=== PATIENT | female | born 1940 | race Caucasian/White ===

== ENCOUNTER → 2017-05-15 | Outpatient (CLI) | payer MEDICARE | END | disposition home or self-care (01) | LOC: RAH 10:50 | PROVIDERS: ATTEND Family Medicine | DX: N18.9 Chronic kidney disease, unspecified (principal); N08 Glomerular disorders in diseases classified elsewhere | CPT/HCPCS: 76770 ==

== ENCOUNTER → 2017-06-15 | Outpatient (CLI) | payer MEDICARE | END | disposition home or self-care (01) | LOC: RAH 10:50 | PROVIDERS: ATTEND Family Medicine | DX: Z12.31 Encounter for screening mammogram for malignant neoplasm of breast (principal) | CPT/HCPCS: 77067 ==

== ENCOUNTER → 2018-07-18 | Outpatient (CLI) | payer MEDICARE | END | disposition home or self-care (01) | LOC: RAH 15:38 | PROVIDERS: ATTEND Family Medicine | DX: J47.0 Bronchiectasis with acute lower respiratory infection (principal); J20.9 Acute bronchitis, unspecified; M47.815 Spondylosis without myelopathy or radiculopathy, thoracolumbar region | CPT/HCPCS: 71046 ==

== ENCOUNTER → 2018-08-02 | Outpatient (CLI) | payer MEDICARE | END | disposition home or self-care (01) | LOC: RAH 14:56 | PROVIDERS: ATTEND Family Medicine | DX: Z12.31 Encounter for screening mammogram for malignant neoplasm of breast (principal) | CPT/HCPCS: 77067 ==

== ENCOUNTER 2019-12-22 23:05 | Inpatient (IN) | payer MEDICARE ==
[~2019-12-22] VITALS: Ht 160 cm; Wt 104.3 kg
[2019-12-22] MEDS ORDERED: ASPIRIN 325 MG TABLET ONE (23:10)
[2019-12-22 23:33] LABS: BASOPHILS % (AUTO) 0.4 % (0.0-5.0); EOSINOPHILS % (AUTO) 1.5 % (0.0-8.0); HEMATOCRIT 44.1 % (36-48); LYMPHOCYTES % (AUTO) 22.3 % (21.0-51.0); MEAN CORPUSCULAR HEMOGLOBIN 30.5 pg (27.0-33.0); MEAN CORPUSCULAR HGB CONC 32.4 g/dL (32.0-36.0); MONOCYTES % (AUTO) 6.6 % (3.0-13.0); NEUTROPHILS % (AUTO) 68.9 % (40.0-77.0); PLATELET COUNT (AUTO) 257 K/uL (130-400); RED BLOOD CELL COUNT(AUTO) 4.69 MIL/uL (4.00-5.50); RED CELL DISTRIBUTION WIDTH 14.2 % (11.0-15.5); WHITE BLOOD COUNT (AUTO) 10.6 K/uL (4.8-10.8)
[2019-12-22 23:44] LABS: CREATININE 1.2 mg/dL (0.5-1.5); POTASSIUM 3.5 mmol/L (3.5-5.1)
[2019-12-22 23:48] LABS: ALBUMIN 3.8 g/dL (3.5-5.0); BILIRUBIN,TOTAL 0.3 mg/dL (0.2-1.0); TOTAL PROTEIN, SERUM 7.6 g/dL (6.0-8.3)
[2019-12-22 23:58] LABS: B-TYPE NATRIURETIC PEPTIDE 183 pg/mL (0-100)
[2019-12-23] LABS: INR 2.5 (0.85-1.15); PROTHROMBIN TIME 26.1 SEC (9.6-11.6)
[2019-12-23 00:41] LABS: PARTIAL THROMBOPLASTIN TIME 35.1 SEC (26.3-35.5)
[2019-12-23] MEDS ORDERED: FAMOTIDINE/PF 20 MG/2 ML VIAL IV ONE (02:41)
[2019-12-23] MEDS ORDERED: HYDRALAZINE HCL 20 MG/ML VIAL ONE (02:41)
[2019-12-23 04:00] VITALS: BP 153/66
[2019-12-23] MEDS ORDERED: SOTA120T PO (04:33)
[2019-12-23] MEDS ORDERED: GEMF600T5 PO (04:34)
[2019-12-23] MEDS ORDERED: EZET10TA48 PO (04:34)
[2019-12-23] MEDS ORDERED: CHLO25TA3 PO (04:37)
[2019-12-23] MEDS ORDERED: ASCO100031 PO (04:45)
[2019-12-23] MEDS ORDERED: OMEG-184 PO (04:45)
[2019-12-23] MEDS ORDERED: VITA1TAB22 PO (04:45)
[2019-12-23] MEDS ORDERED: L.AC1CAP6 PO (04:45)
[2019-12-23] MEDS ORDERED: FOLI0.8T22 PO (04:45)
[2019-12-23] MEDS ORDERED: MULT-1367 PO (04:45)
[2019-12-23] MEDS ORDERED: VALS160T29 PO (04:45)
[2019-12-23] MEDS ORDERED: MV-M1TAB20 PO ×2 (04:45→04:48)
[2019-12-23] MEDS ORDERED: WARF-57 PO (04:45)
[2019-12-23] MEDS ORDERED: CHOL400C9 PO (04:45)
[2019-12-23] MEDS ORDERED: LIDOCAINE HCL 2% VISCOUS 30 ML, MAG HYDROX/AL HYDROX/SIMETH 30 ML, BELLADONNA-PHENOBARB... PO PRN ×3 (05:15)
[2019-12-23] MEDS ORDERED: NITROGLYCERIN 0.4 MG SL TAB SL PRN (05:15)
[2019-12-23] MEDS ORDERED: GUAIFENESIN-DM 200/20 MG 10 ML PO PRN (05:15)
[2019-12-23] MEDS ORDERED: LACTULOSE 20 GM/30 ML UDCUP PO PRN (05:15)
[2019-12-23] MEDS ORDERED: ACETAMINOPHEN 325 MG TAB PO PRN ×2 (05:15)
[2019-12-23] MEDS ORDERED: MORPHINE SULFATE 2 MG/ML 1ML SYG IV PRN (05:15)
[2019-12-23] MEDS ORDERED: ONDANSETRON HCL 4 MG/2 ML VIAL IV PRN (05:15)
[2019-12-23 06:18] LABS: BASOPHILS % (AUTO) 0.5 % (0.0-5.0); EOSINOPHILS % (AUTO) 1.6 % (0.0-8.0); HEMATOCRIT 46.8 % (36-48); LYMPHOCYTES % (AUTO) 21.5 % (21.0-51.0); MEAN CORPUSCULAR HEMOGLOBIN 30.6 pg (27.0-33.0); MEAN CORPUSCULAR HGB CONC 32.5 g/dL (32.0-36.0); MEAN CORPUSCULAR VOLUME 94.2 fL (79-99); NEUTROPHILS % (AUTO) 70.2 % (40.0-77.0); PLATELET COUNT (AUTO) 257 K/uL (130-400); RED BLOOD CELL COUNT(AUTO) 4.97 MIL/uL (4.00-5.50); RED CELL DISTRIBUTION WIDTH 14.3 % (11.0-15.5); WHITE BLOOD COUNT (AUTO) 9.2 K/uL (4.8-10.8)
[2019-12-23 06:33] LABS: HEMOGLOBIN A1C 6.3 % (4.0-6.0)
[2019-12-23 06:38] LABS: ALBUMIN 3.8 g/dL (3.5-5.0); BILIRUBIN,TOTAL 0.5 mg/dL (0.2-1.0); POTASSIUM 3.6 mmol/L (3.5-5.1); TOTAL PROTEIN, SERUM 7.6 g/dL (6.0-8.3)
[2019-12-23 07:23] LABS: CHOLESTEROL 165 mg/dL (<200); HDL CHOLESTEROL 45 mg/dL (35-85); LDL DIRECT 99 mg/dL (0-99); TRIGLYCERIDES 100 mg/dL (30-200)
[2019-12-23] MEDS: **HM** CHLORTHALIDONE 25MG PO SCH (09:00)
[2019-12-23] MEDS ORDERED: ASPIRIN 325 MG TABLET PO SCH (09:00)
[2019-12-23] MEDS ORDERED: WARFARIN SODIUM 5 MG TAB PO SCH (09:00)
[2019-12-23] MEDS ORDERED: ENOXAPARIN SODIUM 30 MG/0.3 ML SQ SCH (09:00)
[2019-12-23] MEDS ORDERED: EZETIMIBE 10 MG TAB PO SCH (09:00)
[2019-12-23] MEDS ORDERED: SOTALOL HCL 80 MG TABLET PO SCH (09:00)
[2019-12-23] MEDS: GEMFIBROZIL 600 MG TABLET PO SCH ×2 (10:30→17:39)
[2019-12-23] MEDS: LOSARTAN 100 MG TABLET PO SCH (10:31)
[2019-12-23] MEDS: FAMOTIDINE/PF 20 MG/2 ML VIAL IV SCH ×2 (10:32→21:16)
[2019-12-23 13:11] VITALS: BP 189/64
[2019-12-23] MEDS: HYDRALAZINE HCL 25 MG TABLET PO SCH ×2 (14:37→21:17)
--- NOTE | 2019-12-23 15:00 | NUR ---
MET WITH PATIENT AT BEDSIDE FOR D/C PLANNING. LIVES WITH DAUGHTER DEANNA, IS INDEPENDENT, DRIVES, HAS A SHOWER CHAIR BUT NO OTHER DME, SEES HER PCP DR. 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
[2019-12-23] MEDS ORDERED: COMPOUND PO MISCELLANEOUS 1 EACH MISC MISC PRN (18:45)
[2019-12-23] MEDS ORDERED: LIDOCAINE HCL 2% VISCOUS 60 ML, MAG HYDROX/AL HYDROX/SIMETH 60 ML, DICYCLOMINE HCL 40 MG PO PRN ×3 (18:45)
--- NOTE | 2019-12-23 19:00 | NUR ---
PT UPDATE: PT REMAINED CALM AND COOPERATIVE THROUGHOUT SHIFT. NO SIGNS OF DISTRESS NOTED OR REPORTED. PT DENIED ANY CHEST PAIN. PT WAS SEEN BY VICTORINA WRIGHT. BLOOD PRESSURE WAS HIGH IN AM AND HEART RATE DROPPED IN BETWEEN THE HIGH 30-40's AND WAS REPORTED TO VICTORINA WRIGHT WITH HEART CLINIC, ORDERS GIVEN TO HOLD SOTALOL/BETAPACE AND START ON HYDRALAZINE 25 MG PO BID. SEE EMAR FOR FURTHER DETAIL. PT WILL CONTINUE TO BE MONITORED.
[2019-12-23 19:46] VITALS: BP 164/71
[2019-12-23 20:00] VITALS: BP 188/86
[2019-12-23] MEDS: EZETIMIBE 10 MG TAB PO SCH (21:16)
[2019-12-23] MEDS: WARFARIN SODIUM 5 MG TAB PO SCH (21:17)
[2019-12-24] VITALS (7 sets, daily range): BP systolic 148–187; BP diastolic 57–84
[2019-12-24] MEDS: HYDRALAZINE HCL 20 MG/ML VIAL IV PRN ×3 (00:10→10:01)
[2019-12-24 06:34] LABS: INR 3.1 (0.85-1.15); PROTHROMBIN TIME 32.1 SEC (9.6-11.6)
[2019-12-24] MEDS: LOSARTAN 100 MG TABLET PO SCH (08:31)
[2019-12-24] MEDS: HYDRALAZINE HCL 25 MG TABLET PO SCH ×2 (08:32→20:27)
[2019-12-24] MEDS: ASPIRIN 81MG TAB.CHEW PO SCH (08:32)
[2019-12-24] MEDS: FAMOTIDINE/PF 20 MG/2 ML VIAL IV SCH ×2 (08:32→20:26)
[2019-12-24] MEDS: GEMFIBROZIL 600 MG TABLET PO SCH ×2 (08:33→19:00)
[2019-12-24] MEDS: **HM** CHLORTHALIDONE 25MG PO SCH (09:00)
--- NOTE | 2019-12-24 10:08 | NUR ---
ASSESSMENT PT AAOX4 PT IN BED WORRIED ABOUT LEXISCAN, AND MEDS. PT BP 176/95, GAVE 0.5 OF HYDRALAZINE IVP SLOW
[2019-12-24] MEDS ORDERED: FOLI1TAB85 PO (10:33)
[2019-12-24] MEDS ORDERED: SOTALOL HCL 80 MG TABLET PO SCH ×2 (10:54→21:00)
[2019-12-24] MEDS ORDERED: Vitamin B Complex/Vit C/Folic Acid PO SCH (11:00)
--- NOTE | 2019-12-24 11:10 | NUR ---
ROUNDING WENT FOR 2ND PART OF LEXISCAN
[2019-12-24] MEDS: REGADENOSON 0.4 MG/5 ML PF SYG IVP SCH ×2 (11:30→13:19)
--- NOTE | 2019-12-24 13:30 | NUR ---
ROUNDING BACK FROM [facility]
[2019-12-24] MEDS: WARFARIN SODIUM 5 MG TAB PO SCH (18:59)
[2019-12-24] MEDS: EZETIMIBE 10 MG TAB PO SCH (20:26)
[2019-12-25 04:00] VITALS: BP 166/71
[2019-12-25] MEDS: HYDRALAZINE HCL 20 MG/ML VIAL IV PRN ×2 (04:15→14:04)
[2019-12-25 04:47] LABS: BASOPHILS % (AUTO) 0.4 % (0.0-5.0); EOSINOPHILS % (AUTO) 1.5 % (0.0-8.0); HEMATOCRIT 46.5 % (36-48); LYMPHOCYTES % (AUTO) 28.1 % (21.0-51.0); MEAN CORPUSCULAR HEMOGLOBIN 30.2 pg (27.0-33.0); MEAN CORPUSCULAR HGB CONC 32.7 g/dL (32.0-36.0); MEAN CORPUSCULAR VOLUME 92.3 fL (79-99); MONOCYTES % (AUTO) 7.6 % (3.0-13.0); PLATELET COUNT (AUTO) 271 K/uL (130-400); RED BLOOD CELL COUNT(AUTO) 5.04 MIL/uL (4.00-5.50); RED CELL DISTRIBUTION WIDTH 14.6 % (11.0-15.5); WHITE BLOOD COUNT (AUTO) 8.6 K/uL (4.8-10.8)
[2019-12-25 05:11] LABS: INR 2.9 (0.85-1.15); PROTHROMBIN TIME 30.1 SEC (9.6-11.6)
[2019-12-25 05:41] LABS: CREATININE 1.3 mg/dL (0.5-1.5); POTASSIUM 3.6 mmol/L (3.5-5.1)
[2019-12-25] MEDS ORDERED: PHYTONADIONE 10 MG/1 ML AMP IM SCH (07:15)
[2019-12-25 08:31] VITALS: BP 158/71
[2019-12-25] MEDS: **HM** CHLORTHALIDONE 25MG PO SCH (09:00)
[2019-12-25] MEDS: FAMOTIDINE/PF 20 MG/2 ML VIAL IV SCH ×2 (10:17→20:16)
[2019-12-25] MEDS: GEMFIBROZIL 600 MG TABLET PO SCH ×2 (10:17→16:47)
[2019-12-25] MEDS: METOPROLOL TARTRATE 25 MG TAB PO SCH ×2 (10:17→20:17)
[2019-12-25] MEDS: HYDRALAZINE HCL 25 MG TABLET PO SCH ×2 (10:18→20:17)
[2019-12-25] MEDS: ASPIRIN 81MG TAB.CHEW PO SCH (10:19)
[2019-12-25] MEDS: LOSARTAN 100 MG TABLET PO SCH (10:19)
[2019-12-25 11:54] VITALS: BP 175/86
--- NOTE | 2019-12-25 14:15 | NUR ---
1400 patient signed IM Letter, I faxed IM Letter to [phone] and placed in chart under consent tab.
[2019-12-25] MEDS ORDERED: DiphenhydrAMINE HCL 50 MG/ML VIAL ONE (16:32)
[2019-12-25 16:41] VITALS: BP 152/58
[2019-12-25] MEDS ORDERED: DiphenhydrAMINE HCL 50 MG/ML VIAL IV SCH (17:35)
[2019-12-25 20:00] VITALS: BP 148/64
[2019-12-25] MEDS: EZETIMIBE 10 MG TAB PO SCH (20:16)
--- NOTE | 2019-12-25 20:20 | NUR ---
#2 FFP TRANSFUSION: SECOND BAG OF FFP TRANSFUSION GIVEN ORDERED AND PER HOSPITAL POLICY. COMPLETED WITHOUT ANY ADVERSE REACTION. TOLERATED WELL.
[2019-12-26] VITALS: BP 163/69
[2019-12-26 04:00] VITALS: BP 184/69
[2019-12-26] MEDS: HYDRALAZINE HCL 25 MG TABLET PO SCH ×2 (04:26→22:22)
[2019-12-26 04:45] LABS: BASOPHILS % (AUTO) 0.5 % (0.0-5.0); EOSINOPHILS % (AUTO) 2.4 % (0.0-8.0); HEMATOCRIT 43.9 % (36-48); LYMPHOCYTES % (AUTO) 23.5 % (21.0-51.0); MEAN CORPUSCULAR HEMOGLOBIN 30.5 pg (27.0-33.0); MEAN CORPUSCULAR HGB CONC 32.8 g/dL (32.0-36.0); NEUTROPHILS % (AUTO) 63.4 % (40.0-77.0); PLATELET COUNT (AUTO) 250 K/uL (130-400); RED BLOOD CELL COUNT(AUTO) 4.72 MIL/uL (4.00-5.50); RED CELL DISTRIBUTION WIDTH 14.6 % (11.0-15.5); WHITE BLOOD COUNT (AUTO) 8.4 K/uL (4.8-10.8)
[2019-12-26 04:57] LABS: CREATININE 1.1 mg/dL (0.5-1.5); POTASSIUM 3.3 mmol/L (3.5-5.1)
[2019-12-26 05:05] LABS: INR 1.57 (0.85-1.15); PROTHROMBIN TIME 16.7 SEC (9.6-11.6)
--- NOTE | 2019-12-26 05:10 | NUR ---
potassium 3.3 On-call hospitalist made aware thru phone with an order to give Potassium 20 meq IV piggyback x 1 only.
[2019-12-26] MEDS ORDERED: LIDOCAINE HCL-MPF 1% 2ML VIAL IV SCH (05:30)
[2019-12-26] MEDS: POTASSIUM CHLORIDE 20 MEQ/100 ML BAG IV SCH (06:17)
[2019-12-26] MEDS: METOPROLOL TARTRATE 25 MG TAB PO SCH (06:42)
[2019-12-26 08:00] VITALS: BP 189/80
--- NOTE | 2019-12-26 08:00 | NUR ---
pharmacy called pharmacy requesting hydralzine iv due to high bp...informed they would like for some in other floors and bring me some for patient...
[2019-12-26] MEDS: GEMFIBROZIL 600 MG TABLET PO SCH ×2 (09:00→18:36)
[2019-12-26] MEDS ORDERED: TERBINAFINE HCL 15 GM TUBE TP SCH (09:00)
[2019-12-26] MEDS: FAMOTIDINE/PF 20 MG/2 ML VIAL IV SCH ×2 (09:02→22:22)
[2019-12-26] MEDS: HYDRALAZINE HCL 20 MG/ML VIAL IV PRN (09:02)
[2019-12-26 12:00] VITALS: BP 156/61
[2019-12-26] MEDS ORDERED: NITROGLYCERIN 2 MG/VIAL VIAL IV ONE (13:04)
[2019-12-26] MEDS ORDERED: SODIUM BICARB 50MEQ 50ML VIAL 50 ML ONE (13:04)
[2019-12-26] MEDS ORDERED: IOHEXOL-350 75 ML VIAL IV ONE (13:04)
[2019-12-26] MEDS ORDERED: MIDAZOLAM HCL 1 MG/ML 2ML VIAL ONE ×2 (13:04→14:07)
[2019-12-26] MEDS ORDERED: HEPARIN SODIUM 1000UNIT/ML 10ML VIAL ONE (13:05)
[2019-12-26] MEDS ORDERED: LIDOCAINE HCL 2% 20ML ONE (13:05)
[2019-12-26] MEDS ORDERED: MEPERIDINE-PF 25 MG/ML SYG ONE ×2 (13:09→14:06)
[2019-12-26] MEDS ORDERED: NICARDIPINE HCL 25 MG/10 ML ML IV ONE (14:02)
[2019-12-26] MEDS ORDERED: LABETALOL HCL 5 MG/ML 20ML VIAL IV ONE (14:31)
[2019-12-26] MEDS ORDERED: LABE200T5 PO (15:18)
--- NOTE | 2019-12-26 15:28 | NUR ---
transfer to [facility] patient was transferred to [facility] room 408 after heart cath..gave report to farzana aguilera who was taking over nursing care...answered all questions and concerns and provided kardex
[2019-12-26] MEDS ORDERED: LABETALOL HCL 200 MG TABLET PO SCH (16:15)
[2019-12-26 20:00] VITALS: BP 152/52
[2019-12-26] MEDS: EZETIMIBE 10 MG TAB PO SCH (22:21)
[2019-12-26] MEDS: SODIUM CHLORIDE 0.9% 1000ML 1,000 ML IV SCH (22:22)
[2019-12-26] MEDS: LOSARTAN 100 MG TABLET PO SCH (22:39)
[2019-12-27] VITALS: BP 141/51
[2019-12-27] MEDS: SODIUM CHLORIDE 0.9% 1000ML 1,000 ML IV SCH (01:00)
[2019-12-27 04:00] VITALS: BP 126/58
[2019-12-27] MEDS: POTASSIUM CHLORIDE 20 MEQ/100 ML BAG IV SCH (05:15)
[2019-12-27] MEDS ORDERED: LABETALOL HCL 200 MG TABLET PO SCH (06:00)
[2019-12-27 06:06] LABS: BASOPHILS % (AUTO) 0.3 % (0.0-5.0); EOSINOPHILS % (AUTO) 2.2 % (0.0-8.0); LYMPHOCYTES % (AUTO) 23.1 % (21.0-51.0); MEAN CORPUSCULAR HEMOGLOBIN 30.5 pg (27.0-33.0); MEAN CORPUSCULAR HGB CONC 32.4 g/dL (32.0-36.0); MONOCYTES % (AUTO) 10.6 % (3.0-13.0); NEUTROPHILS % (AUTO) 63.7 % (40.0-77.0); PLATELET COUNT (AUTO) 226 K/uL (130-400); RED BLOOD CELL COUNT(AUTO) 4.36 MIL/uL (4.00-5.50); RED CELL DISTRIBUTION WIDTH 14.7 % (11.0-15.5); WHITE BLOOD COUNT (AUTO) 6.9 K/uL (4.8-10.8)
[2019-12-27 06:23] LABS: POTASSIUM 3.3 mmol/L (3.5-5.1)
[2019-12-27 08:00] VITALS: BP 150/62
[2019-12-27] MEDS: FAMOTIDINE/PF 20 MG/2 ML VIAL IV SCH (08:03)
[2019-12-27] MEDS: LOSARTAN 100 MG TABLET PO SCH (08:03)
[2019-12-27] MEDS: GEMFIBROZIL 600 MG TABLET PO SCH (08:03)
[2019-12-27] MEDS: HYDRALAZINE HCL 25 MG TABLET PO SCH (08:03)
[2019-12-27 12:00] VITALS: BP 134/74
[2019-12-27] MEDS ORDERED: HYDR25 PO (13:09)
[2019-12-27] MEDS ORDERED: ASPI-1005 PO (13:09)
[2019-12-27] MEDS ORDERED: DOXY100C2 PO (13:09)
[2019-12-27] MEDS ORDERED: LOSA100T2 PO (13:09)
[2019-12-27] MEDS ORDERED: PANT40TA PO (13:23)
== END 2019-12-27 16:20 | disposition home or self-care (01) | DRG 287 ==
LOC: EDH 23:05 → OBSVTOIN 12-23 02:38 → EDHIP 12-23 02:38 → INTOOBSV 12-23 02:38 → 3DH 12-23 04:09 → 4BH 12-26 16:15
PROVIDERS: ADMIT Family Medicine; ATTEND Family Medicine
PROC: 4A023N7 Measurement of Cardiac Sampling and Pressure, Left Heart, Percutaneous Approach (ICD-10-PCS; principal; 2019-12-26)
PROC: B2111ZZ Fluoroscopy of Multiple Coronary Arteries using Low Osmolar Contrast (ICD-10-PCS; 2019-12-26)
PROC: B2151ZZ Fluoroscopy of Left Heart using Low Osmolar Contrast (ICD-10-PCS; 2019-12-26)
DX: I25.10 Atherosclerotic heart disease of native coronary artery without angina pectoris (principal); Z68.41 Body mass index [BMI] 40.0-44.9, adult; I48.21 Permanent atrial fibrillation; E78.5 Hyperlipidemia, unspecified; B35.9 Dermatophytosis, unspecified; E66.9 Obesity, unspecified; E78.00 Pure hypercholesterolemia, unspecified; I08.1 Rheumatic disorders of both mitral and tricuspid valves; I10 Essential (primary) hypertension; K21.9 Gastro-esophageal reflux disease without esophagitis; Z96.659 Presence of unspecified artificial knee joint; Z79.01 Long term (current) use of anticoagulants; Z90.710 Acquired absence of both cervix and uterus; Z90.49 Acquired absence of other specified parts of digestive tract; Z86.73 Personal history of transient ischemic attack (TIA), and cerebral infarction without residual deficits; Z88.5 Allergy status to narcotic agent; Z88.0 Allergy status to penicillin; Z91.030 Bee allergy status
CPT/HCPCS: 36415; 36430; 71045; 78452; 80048; 80053; 80061; 82550; 82948; 83036; 83735; 83880; 84484; 85025; 85610; 85730; 86850; 86900; 86901; 86927; 93005; 93017; 93306; 93356; 93458; 96374; 99156; 99157; A9500; C1760; C1769; C1894; G0378; J0360; J1200; J1644; J2175; J2250; J2785; J3430; J3480; J3490; P9017; Q9967

== ENCOUNTER → 2022-07-18 | Outpatient (CLI) | payer MEDICARE ==
[~2022-07-18] MED LIST: ASCO100031 PO; ASPI-1005 PO; DOXY100C5 PO; EZET10TA48 PO; FOLI0.8T22 PO; FOLI1TAB85 PO; GEMF600T89 PO; HYDR25 PO; L.AC1CAP6 PO; LABE200T7 PO; LOSA100T3 PO; MULT-1367 PO; MV-M1TAB20 PO; OMEG-184 PO; PANT40TA PO; VITA1TAB22 PO; WARF-57 PO
== END | disposition home or self-care (01) ==
LOC: OIH 12:10
PROVIDERS: ATTEND Internal Medicine
DX: C50.812 Malignant neoplasm of overlapping sites of left female breast (principal); M16.11 Unilateral primary osteoarthritis, right hip
CPT/HCPCS: 73502

== ENCOUNTER 2023-03-31 15:45 | Observation (INO) | payer MEDICARE ==
[~2023-03-31] VITALS: Ht 161.3 cm; Wt 94.8 kg
[~2023-03-31 15:45] MED LIST changes: +LOSA-420 PO; -LOSA100T3 PO
[2023-03-31 16:10] LABS: HEMATOCRIT 44.3 % (36-48); MEAN CORPUSCULAR HGB CONC 32.5 g/dL (32.0-36.0); MEAN CORPUSCULAR VOLUME 92.3 fL (79-99); RED BLOOD CELL COUNT(AUTO) 4.8 MIL/uL (4.00-5.50); WHITE BLOOD COUNT (AUTO) 5.6 K/uL (4.8-10.8)
[2023-03-31 16:21] LABS: CREATININE 1.1 mg/dL (0.5-1.5); POTASSIUM 4.3 mmol/L (3.5-5.1)
[2023-03-31 16:27] LABS: ALBUMIN 3.7 g/dL (3.5-5.0); BILIRUBIN,TOTAL 0.4 mg/dL (0.2-1.0); MAGNESIUM 1.8 mg/dL (1.80-2.40)
[2023-03-31 17:01] LABS: INR 1.97 (0.85-1.15); PROTHROMBIN TIME 21.9 SEC (9.6-11.6)
[2023-03-31 17:02] LABS: PARTIAL THROMBOPLASTIN TIME 35.5 SEC (26.3-35.5)
[2023-03-31] MEDS ORDERED: SOTA80TA PO (18:55)
[2023-03-31] MEDS ORDERED: VALS320T16 PO (18:55)
[2023-03-31] MEDS ORDERED: CHLORTHALIDONE PO (18:55)
[2023-03-31] MEDS ORDERED: DEXTROSE 50%-WATER 50 ML DISP.SYRIN IV PRN (19:00)
[2023-03-31] MEDS ORDERED: NITROGLYCERIN 30 GM TUBE TD SCH (19:00)
[2023-03-31] MEDS ORDERED: GLUCAGON 1MG KIT 1 MG ML IM PRN (19:00)
[2023-03-31] MEDS: NITROGLYCERIN 1GM OINT 1 INCH/1GM TD SCH (19:04)
[2023-03-31] MEDS: INSULIN HUMULIN R 100 UNIT/ML 3ML SQ SCH (21:00)
[2023-03-31 22:15] VITALS: BP 195/89; PULSE 50; RESP 18
[2023-03-31 22:50] VITALS: O2SAT 95
[2023-04-01 03:00] VITALS: BP 150/85; PULSE 48; RESP 16
[2023-04-01] MEDS: NITROGLYCERIN 1GM OINT 1 INCH/1GM TD SCH (03:19)
[2023-04-01 05:16] LABS: HEMOGLOBIN A1C 6.1 % (4.0-6.0)
[2023-04-01 05:20] LABS: INR 1.97 (0.85-1.15); PROTHROMBIN TIME 21.9 SEC (9.6-11.6)
[2023-04-01 05:25] LABS: POTASSIUM 3.7 mmol/L (3.5-5.1)
[2023-04-01] MEDS: INSULIN HUMULIN R 100 UNIT/ML 3ML SQ SCH (07:30)
[2023-04-01 08:00] VITALS: BP_SYST 155; BP_SYST 188; BP_DIAS 71; BP_DIAS 88; PULSE 62; RESP 18; O2SAT 96
[2023-04-01] MEDS ORDERED: MAG/ALUM/SIMETH 30 ML UDCUP PO PRN (09:30)
[2023-04-01] MEDS ORDERED: ONDANSETRON 4MG INJ IV PRN (09:30)
[2023-04-01] MEDS ORDERED: ACETAMINOPHEN 325 MG TAB PO PRN ×2 (09:30)
[2023-04-01] MEDS ORDERED: GUAIFENESIN-DM 200/20 MG 10 ML PO PRN (09:30)
[2023-04-01] MEDS ORDERED: LACTULOSE 20 GM/30 ML UDCUP PO PRN (09:30)
[2023-04-01] MEDS ORDERED: SOTA80TA PO (10:36)
[2023-04-01] MEDS ORDERED: GEMFIBROZIL 600 MG TABLET PO SCH (18:00)
[2023-04-01] MEDS ORDERED: (L.acidoph & Paracasei,B.lactis (Probiotic) 1 EACH) PO SCH (18:00)
[2023-04-01] MEDS ORDERED: SOTALOL HCL 80 MG TABLET PO SCH (21:00)
[2023-04-02] MEDS ORDERED: NON-FORMULARY MEDICATION 1 EACH (Folic Acid/Vitamin B Comp W-C (Rena-Vite Tablet) 0.8 MG) PO SCH (09:00)
[2023-04-02] MEDS ORDERED: LOSARTAN 100 MG TABLET PO SCH (09:00)
[2023-04-02] MEDS ORDERED: WARFARIN SODIUM 5 MG TAB PO SCH (09:00)
[2023-04-02] MEDS ORDERED: EZETIMIBE 10 MG TAB PO SCH (09:00)
[2023-04-02] MEDS ORDERED: PANTOPRAZOLE 40 MG TAB DR PO SCH (09:00)
[2023-04-02] MEDS ORDERED: CHLORTHALIDONE 25 MG PO SCH (09:00)
[2023-04-02] MEDS ORDERED: ASCORBIC ACID 500 MG TAB PO SCH (09:00)
[2023-04-02] MEDS ORDERED: Vitamin B Complex/Vit C/Folic Acid PO SCH (09:00)
== END 2023-04-01 13:25 | disposition home or self-care (01) ==
LOC: EDH 15:45 → EDHIP 18:26 → 3DH 22:08
PROVIDERS: ADMIT Internal Medicine; ATTEND Internal Medicine
DX: I25.10 Atherosclerotic heart disease of native coronary artery without angina pectoris (principal); I99.8 Other disorder of circulatory system; R00.1 Bradycardia, unspecified; E78.5 Hyperlipidemia, unspecified; K21.9 Gastro-esophageal reflux disease without esophagitis; I13.10 Hypertensive heart and chronic kidney disease without heart failure, with stage 1 through stage 4 chronic kidney disease, or unspecified chronic kidney disease; E11.22 Type 2 diabetes mellitus with diabetic chronic kidney disease; N18.30 Chronic kidney disease, stage 3 unspecified; I48.11 Longstanding persistent atrial fibrillation; E66.9 Obesity, unspecified; D68.69 Other thrombophilia; G72.0 Drug-induced myopathy; F41.9 Anxiety disorder, unspecified; M79.89 Other specified soft tissue disorders; I07.1 Rheumatic tricuspid insufficiency; Z88.0 Allergy status to penicillin; Z88.5 Allergy status to narcotic agent; Z91.030 Bee allergy status; Z79.82 Long term (current) use of aspirin; Z79.899 Other long term (current) drug therapy; Z68.38 Body mass index [BMI] 38.0-38.9, adult; Z79.01 Long term (current) use of anticoagulants; Z90.710 Acquired absence of both cervix and uterus; Z90.49 Acquired absence of other specified parts of digestive tract; Z68.36 Body mass index [BMI] 36.0-36.9, adult
CPT/HCPCS: 99285; 82550 ×2; 83735; 84484 ×3; 80053; 83880; 85027; 85610 ×2; 85730; 82948; 36415 ×2; 71045; 93005; 83036; 80048; G0378 ×18

== ENCOUNTER → 2023-07-21 | Outpatient (CLI) | payer MEDICARE ==
[~2023-07-21] MED LIST changes: -ASPI-1005 PO; +CHLORTHALIDONE PO; -DOXY100C5 PO; -HYDR25 PO; -LABE200T7 PO; -LOSA-420 PO; -MULT-1367 PO; -MV-M1TAB20 PO; -OMEG-184 PO; +SOTA80TA PO; +VALS320T16 PO; -VITA1TAB22 PO
== END | disposition home or self-care (01) ==
LOC: SHCH 14:28
PROVIDERS: ATTEND Internal Medicine Cardiovascular Disease
DX: I73.9 Peripheral vascular disease, unspecified (principal)
CPT/HCPCS: 93925

== ENCOUNTER → 2024-09-16 | Outpatient (CLI) | payer MEDICARE ==
[~2024-09-16] MED LIST changes: +AMLO5TAB4 PO; +APIX5TAB PO; -ASCO100031 PO; -CHLORTHALIDONE PO; -FOLI0.8T22 PO; +HYDR25 PO; +Isosorbide Mono 30MG Sr Tab PO; -L.AC1CAP6 PO; +MELA5CAP PO; -SOTA80TA PO; +TRAZ-185 PO; -WARF-57 PO
--- NOTE | 2024-09-17 21:35 | HMCIMG ---
STUDY PERFORMED: BD Bone Density DEXA Axial Skeleton TECHNIQUE: [employer] VI[employer] Dual Energy X-ray absorptiometry (DEXA) COMPARISON: None available. FINDINGS: Lumbar Spine L1-L4 Density(g/cm2): 1.382 T-score: 3.0 Z-score: 5.8 Left Femoral Neck Density(g/cm2): 0.707 T-score: -1.3 Z-score: 1.1 Total Proximal Femur Density(g/cm2): 0.969 T-score: 0.2 Z-score: 2.4 INTERPRETATION: The bone mineral density in the lumbar spine is in the normal range. The bone mineral density of the left hip is in the osteopenia range. FRAX 10 year probability of fracture: Major osteoporotic fracture: 12% Hip fracture: 2.8% COMMENTS: T-scores are a means of evaluating bone mineral density relative to young adult population and are defined as the number of standard deviations of the mean. T-scores at or above -1.0 are considered normal. T-scores between -1.0 and -2.5 are consistent with osteopenia. T-scores at or below -2.5 are consistent with osteoporosis. T-score values below -2.0 are thought to be associated with an increased risk of fracture. Z-scores are related to age-matched controls. The study does not distinguish osteoporosis from other causes of decreased bone density such as osteomalacia or multiple myeloma. Therefore, if clinically indicated or Z-scores are less than -2.0, additional metabolic studies may be appropriate. RECOMMENDATIONS: National Osteoporosis Foundation (NOF) guidelines recommend initiating therapy to reduce fracture risk in women with BMD: T-Score below -2 SD T-Score Below -1.5 with other risks factors present NOF guidelines recommend all people with T score of -2.5 and below (osteoporosis) consider taken osteoporosis medication. The NOF recommends adults under age 50 need 1,000 mg of calcium and 400-800 IU of vitamin D daily. Adults 50 and over need 1,200 mg of calcium and 800-1000 IU of vitamin D daily. Effective therapies for the prevention of osteoporosis include bisphosphonates (Fosamax and Actonel) and Evista. Hormone therapy may be an option based on review of risks and benefit of treatment. People with diagnosed cases of osteoporosis or at high risk for fracture should have regular bone mineral density tests. For patients eligible for Medicare, routine testing is allowed once every 2 years. The testing frequency can be increased to one year for patients who have rapidly progressing disease, those who are receiving or discontinuing medical therapy to restore bone mass, or have additional risk factors. /[place]
== END | disposition home or self-care (01) ==
LOC: RAH 07:48
PROVIDERS: ATTEND Internal Medicine
DX: N95.9 Unspecified menopausal and perimenopausal disorder (principal); M85.89 Other specified disorders of bone density and structure, multiple sites
CPT/HCPCS: 77080